=== PATIENT | male | born 1950 | race Two or more races ===

== ENCOUNTER 2022-09-16 15:28 | Emergency (ER) | payer OTHER ==
[~2022-09-16] VITALS: Ht 167.6 cm; Wt 68.0 kg
[2022-09-16] MEDS ORDERED: SYNTHROID100 MCG PO (15:59)
== END 2022-09-16 22:45 | disposition home or self-care (01) ==
LOC: ER 15:28
DX: S01.81XA Laceration without foreign body of other part of head, initial encounter (principal); W19.XXXA Unspecified fall, initial encounter; Y93.01 Activity, walking, marching and hiking; Y92.9 Unspecified place or not applicable

== ENCOUNTER 2023-02-08 16:57 | Emergency (ER) | payer OTHER ==
[~2023-02-08] VITALS: Ht 170.2 cm; Wt 68.0 kg
[~2023-02-08 16:57] MED LIST: SYNTHROID100 MCG PO
[2023-02-08] MEDS ORDERED: ARICEPT5 MG (17:19)
[2023-02-08] MEDS ORDERED: NORVASC10 MG (17:19)
[2023-02-08] MEDS ORDERED: PAXLOVID 300-11 EACH PO (19:52)
[2023-02-08] MEDS ORDERED: OSEL75CA PO (19:52)
== END 2023-02-08 20:03 | disposition home or self-care (01) ==
LOC: ER 16:57
DX: U07.1 COVID-19 (principal); R50.9 Fever, unspecified; I10 Essential (primary) hypertension; E03.9 Hypothyroidism, unspecified; G30.8 Other Alzheimer's disease; F02.80 Dementia in other diseases classified elsewhere, unspecified severity, without behavioral disturbance, psychotic disturbance, mood disturbance, and anxiety; J10.1 Influenza due to other identified influenza virus with other respiratory manifestations

== ENCOUNTER 2024-05-06 17:24 | Emergency (ER) | payer OTHER ==
[~2024-05-06] VITALS: Ht 165.1 cm; Wt 70.3 kg
[~2024-05-06 17:24] MED LIST changes: +ARICEPT5 MG; +NORVASC10 MG; +OSEL75CA PO; +PAXLOVID 300-11 EACH PO
[2024-05-06] MEDS ORDERED: AMLODIPINE-OLM1 EAC3 (17:32)
[2024-05-06] MEDS ORDERED: ARICEPT10 MG (17:33)
[2024-05-06] MEDS ORDERED: TIROSINT13 MCG (17:33)
[2024-05-06] MEDS ORDERED: TAMS0.4C (17:33)
[2024-05-06] MEDS ORDERED: ACETAMINOPHEN 500 MG GEL..CAP PO ONE ×2 (17:45→17:52)
[2024-05-06] MEDS ORDERED: 0.9 % SODIUM CHLORIDE 1,000 ML IV SCH (17:45)
[2024-05-06 18:23] LABS: HEMATOCRIT 36.2 % (39.0-48.0); HEMOGLOBIN 12.3 g/dL (13-16.00); MEAN CELL VOLUME 86.9 fL (80.0-100.00); MEAN CORPUSCULAR HEMOGLOBIN 29.6 pg (27.00-32.0); PLATELET COUNT 234 K/uL (150-450); RED BLOOD COUNT 4.16 M/uL (4.00-6.00); RED CELL DISTRIBUTION WIDTH 15.6 % (11.5-14.5)
[2024-05-06 18:35] LABS: CALCIUM 10.1 mg/dL (8.5-10.1); CREATININE SERUM 1.48 mg/dL (0.70-1.30); GFR 46.33; POTASSIUM 3.81 mEq/L (3.5-5.1)
[2024-05-06 18:36] LABS: URINE APPEARANCE Cloudy; URINE BILIRRUBIN Small (NEGATIVE); URINE BLOOD Moderate; URINE COLOR Orange; URINE GLUCOSE Negative (NEGATIVE); URINE LEUKOCYTE Small; URINE NITRATE Negative
[2024-05-06 18:40] LABS: URINE BACTERIA 84.4 uL (0.0-1933); URINE EPITHELIAL CELLS 4.6 uL (0.0-38.8); URINE RBC 9.7 uL (0.0-20.8); URINE WBC 40.8 uL (0.0-23.2)
[2024-05-06 18:54] LABS: URINE CRYSTALS FEW /HPF; URINE PROTEIN 100 (NEGATIVE)
[2024-05-06 18:55] LABS: URINE MUCUS MODERATE
[2024-05-06 19:10] LABS: ABG PH 7.488 (7.35-7.45); ABG PO2 87.4 mmHg (80-100); ABG pCO2 37.7 mmHg (35-45); BASE EXCESS 4.5 mmol/l; SaO2 97.5 %; Tco2 29.1 mmol/l
[2024-05-06 20:39] LABS: allen test SATISFACTORY; o2 21 %; puncture site RADIAL LEFT
[2024-05-07] MEDS ORDERED: CEFTRIAXONE SODIUM 1,000 MG VIAL IV STA (02:42)
[2024-05-07] MEDS ORDERED: CEFTRIAXONE SODIUM 1,000 MG VIAL ONE (02:49)
[2024-05-07 07:23] LABS: CALCIUM 9.4 mg/dL (8.5-10.1); CREATININE SERUM 1.13 mg/dL (0.70-1.30); GFR 63.26; POTASSIUM 3.61 mEq/L (3.5-5.1)
[2024-05-07] MEDS ORDERED: CEPHALEXIN500 M1 PO (08:27)
[2024-05-07] MEDS ORDERED: DOLOGEN CAPLET1 EACH PO (08:27)
== END 2024-05-07 10:14 | disposition home or self-care (01) ==
LOC: ER 17:24
PROVIDERS: Emergency Medicine; General Practice
DX: N39.0 Urinary tract infection, site not specified (principal); R53.81 Other malaise; G30.8 Other Alzheimer's disease; F02.80 Dementia in other diseases classified elsewhere, unspecified severity, without behavioral disturbance, psychotic disturbance, mood disturbance, and anxiety; I10 Essential (primary) hypertension; E03.8 Other specified hypothyroidism; J10.1 Influenza due to other identified influenza virus with other respiratory manifestations; Z20.822 Contact with and (suspected) exposure to COVID-19; K40.90 Unilateral inguinal hernia, without obstruction or gangrene, not specified as recurrent
CPT/HCPCS: 36415; 70450; 71045; 74176; 82803; 96365; 96366; 99284; J0696; J7030